=== PATIENT | male | born 1950 | race Caucasian/White ===

== ENCOUNTER 2017-03-08 07:19 | Inpatient (IN) | payer MEDICAID ==
[~2017-03-08] VITALS: Ht 152.4 cm; Wt 88.0 kg
[2017-03-08] MEDS ORDERED: LIDOCAINE HCL 1% 20ML VIAL (Pyxis) INJ ONE (09:23)
[2017-03-08 09:28] LABS: EOSINOPHILS % 4.5 % (0.0-5.0); HEMOGLOBIN. 11.6 g/dL (14.0-18.0); MEAN CORPUSCULAR HEMOGLOBIN 33.3 pg (28.0-32.0); MEAN CORPUSCULAR VOLUME 97.7 fL (80.0-94.0); MONOCYTES % 8.7 % (2.0-8.0); NEUTROPHILS % 70.8 % (40.0-76.0); PLATELET 96 x1000/uL (130-400); RED BLOOD CELL COUNT 3.48 mill/uL (4.7-6.1)
[2017-03-08] MEDS ORDERED: SEVE800T8 PO (10:18)
[2017-03-08] MEDS ORDERED: TERA5CAP4 PO (10:18)
[2017-03-08] MEDS ORDERED: WARF3TAB27 PO (10:18)
[2017-03-08] MEDS ORDERED: DILT240C92 PO (10:18)
[2017-03-08] MEDS ORDERED: BENA20TA3 PO (10:18)
[2017-03-08] MEDS ORDERED: WARF5TAB73 PO (10:18)
[2017-03-08] MEDS ORDERED: LIP40 PO (10:18)
[2017-03-08] MEDS ORDERED: TRAM50TA3 PO (10:18)
[2017-03-08] MEDS ORDERED: IOHEXOL-300 100 ML BOTTLE ONE ×2 (10:32→12:04)
[2017-03-08] MEDS ORDERED: FENTANYL CITRATE/PF 50MCG/ML 2ML VIAL ONE (11:12)
[2017-03-08] MEDS ORDERED: MIDAZOLAM HCL 2 MG/2 ML VIAL ONE (11:12)
[2017-03-08] MEDS ORDERED: HEPARIN SODIUM 1,000 UNIT/1ML VIAL IV ONE (12:00)
[2017-03-08] MEDS ORDERED: IOVERSOL 240MG/ML 100ML BOTTLE IV ONE (12:22)
[2017-03-08] MEDS ORDERED: CLOPIDOGREL 75MG TABLET ONE (12:39)
[2017-03-08] MEDS ORDERED: ACETAMINOPHEN 325MG TABLET PO PRN ×2 (12:45→20:30)
[2017-03-08] MEDS ORDERED: ONDANSETRON HCL 4MG/2ML VIAL IV PRN ×2 (12:45→20:30)
[2017-03-08] MEDS ORDERED: MORPHINE SULFATE 10 MG/ML CPJ IV PRN (12:45)
[2017-03-08 19:52] VITALS: BP 123/66
[2017-03-08 20:30] VITALS: BP 132/60
[2017-03-08] MEDS ORDERED: CLONIDINE 0.1MG TABLET PO PRN (20:30)
[2017-03-08] MEDS ORDERED: IPRATROPIUM/ALBUTEROL 0.5-3(2.5)MG/3ML NEB INH PRN (20:30)
[2017-03-08] MEDS ORDERED: DIPHENHYDRAMINE 50MG/ML VIAL IV PRN (20:30)
[2017-03-08] MEDS ORDERED: MAGNESIUM/ALUMINUM HYDROXIDE/SIMETHICONE 30ML UDC PO PRN (20:30)
[2017-03-08 21:00] VITALS: BP 135/77
[2017-03-08 21:30] VITALS: BP 136/74
[2017-03-09] VITALS (11 sets, daily range): BP systolic 113–170; BP diastolic 50–75
[2017-03-09 05:57] LABS: INR 1.3; PROTHROMBIN TIME 13.3 sec (9.4-11.6)
[2017-03-09 06:25] LABS: BASOPHILS % 0.8 % (0.0-2.0); EOSINOPHILS % 5.9 % (0.0-5.0); HEMOGLOBIN. 10.7 g/dL (14.0-18.0); LYMPHOCYTES % 10.4 % (20.0-50.0); MEAN CORPUSCULAR HEMOGLOBIN 33.5 pg (28.0-32.0); MEAN CORPUSCULAR VOLUME 97.1 fL (80.0-94.0); MEAN PLATELET VOLUME 11.1 fl (7.4-10.4); MONOCYTES % 7.5 % (2.0-8.0); NEUTROPHILS % 75.4 % (40.0-76.0); PLATELET 87 x1000/uL (130-400); RED CELL DISTRIBUTION WIDTH 14.8 % (11.6-14.6)
[2017-03-09] MEDS ORDERED: CLOP75TA16 PO (08:14)
[2017-03-09] MEDS ORDERED: DIGOXIN 500MCG/2ML AMP IV SCH (08:15)
[2017-03-09] MEDS ORDERED: CLOPIDOGREL 75MG TABLET PO SCH ×2 (09:00)
== END 2017-03-09 12:20 | disposition home or self-care (01) | DRG 175 ==
LOC: CCL 07:19 → 3WST 19:52
PROVIDERS: ADMIT Internal Medicine Cardiovascular Disease; ATTEND Internal Medicine Cardiovascular Disease
PROC: 4A023N7 Measurement of Cardiac Sampling and Pressure, Left Heart, Percutaneous Approach (ICD-10-PCS; principal; 2017-03-09)
PROC: 027034Z Dilation of Coronary Artery, One Artery with Drug-eluting Intraluminal Device, Percutaneous Approach (ICD-10-PCS; 2017-03-09)
PROC: B2111ZZ Fluoroscopy of Multiple Coronary Arteries using Low Osmolar Contrast (ICD-10-PCS; 2017-03-09)
PROC: B2151ZZ Fluoroscopy of Left Heart using Low Osmolar Contrast (ICD-10-PCS; 2017-03-09)
DX: I25.10 Atherosclerotic heart disease of native coronary artery without angina pectoris (principal); E11.22 Type 2 diabetes mellitus with diabetic chronic kidney disease; I12.0 Hypertensive chronic kidney disease with stage 5 chronic kidney disease or end stage renal disease; N18.6 End stage renal disease; I48.0 Paroxysmal atrial fibrillation; I35.0 Nonrheumatic aortic (valve) stenosis; Z99.2 Dependence on renal dialysis
CPT/HCPCS: 36415; 80048; 82962; 85025; 85347; 85610; 92928; 93005; 93458; C1725; C1769; C1887; C1893; J1160; J1644; J2250; J3010; J3490; Q9967